=== PATIENT | female | born 1940 | race Caucasian/White ===

== ENCOUNTER 2016-06-11 23:11 | Emergency (ER) | payer MEDICARE ==
[2014-07-09 15:36] VITALS: BMI 44.4
[~2016-06-11 23:11] MED LIST: ASPIRIN325 MG PO; CINNAMON500 MG; CINNAMON500 MG PO; GARLIC1 CAP; GLUCOVANCE 5/501 TAB PO; LASIX40 MG PO; LISINOPRIL5 MG PO; VITAMIN B COMPL1 TA1 PO; probiotic
[2016-06-12 00:08] LABS: BASOPHILS 0 % (0.0-2.0); EOSINOPHILS 0.4 % (0-7); HEMATOCRIT 41.7 % (36.0-48.0); HEMOGLOBIN 13.1 g/dL (12-16); LYMPHOCYTES 3.7 % (15-50); MCH 28.5 pg (26.0-34.0); MCHC 31.4 g/dL (31.0-37.0); MCV 90.7 fL (80.0-100.0); MONOCYTES 4.9 % (2-11); PLATELET COUNT 171 10x3/uL (130-400); RDW 16.2 % (11.5-14.5); WBC 7.8 10x3/uL (4.8-10.8)
[2016-06-12 00:21] LABS: ANION GAP 13.8 mmol/L (8-16); CALCIUM 8.5 mg/dL (8.5-10.1); CREATININE - SERUM 1.1 mg/dL (0.6-1.3); POTASSIUM - SERUM 4.8 mmol/L (3.5-5.1)
== END 2016-06-12 01:45 | disposition home or self-care (01) ==
LOC: D.ER 23:11
PROVIDERS: Nurse Practitioner Acute Care
DX: K52.9 Noninfective gastroenteritis and colitis, unspecified (principal); E11.9 Type 2 diabetes mellitus without complications; I10 Essential (primary) hypertension; Z95.0 Presence of cardiac pacemaker

== ENCOUNTER 2016-08-30 10:46 | Outpatient (CLI) | payer MEDICARE ==
[~2016-08-30] VITALS: Ht 152.4 cm; Wt 93.2 kg
--- NOTE | ~2016-08-30 | HEMODYNAMI ---
PATIENT:NISHANT DANIEL MEDICAL RECORD: [id number] : 36 LOCATION:[facility] ADMISSION DATE: 08/30/16 Generatedon:08/30/201614:38 Patient name: NISHANT DANIEL Patient #: [id number] SSN: : 1940 Date of study: 08/30/2016 Page: Of Hemodynamic Procedure Report Patient Data Patient Demographics Procedure consent was obtained First Name: NISHANT Gender: Female Last Name: FREDY : 1940 [facility] Initial: A Age: 76 year(s) Patient #: [id number] Race: Unknown Additional ID: [id number] Contact details Address: [address] [place] [address] State: [place] City: [facility] Zip code: [address] Past Medical History Allergies Allergen Reaction Date Comments Reported Other allergy 08/30/2016 Statins Admission Admission Data Admission Date: 08/30/2016 Admission Time: 10:46 Admit Source: Other Lab Results Lab Result Date: 08/30/2016 Lab Result Time: 11:59 Biochemistry Name Units Result Min Max BUN mg/dl 31 --(----)-* 7 18 Creatinine mg/dl 1 --(--*-)-- 0.6 1.3 CBC Name Units Result Min Max Hematocrit % 36.2 *-(----)-- 42 54 Hemoglobin g/dl 11.4 *-(----)-- 13.5 17.5 Procedure Procedure Types Cath Procedure Diagnostic Procedure PPM/ICD Permanent Pacer Lead Replace.. Miscellaneous Procedures Moderate Sedation up to 45 minutes Procedure Description Procedure Date Procedure Date: 08/30/2016 Procedure Start Time: 13:56 Procedure End Time: 14:36 Procedure Staff Name Function Kelechi Louis MD Performing Physician Scar Zuluaga MD Assisting physician Yasmine Souza RT Scrub Thompson Britton RT Monitor Jaylan De Leon RN Nurse Procedure Data Cath Procedure Fluoroscopy Diagnostic fluoroscopy Total fluoroscopy Time: 3.2 time: 3.2 min min Diagnostic fluoroscopy Total fluoroscopy dose: 86 dose: 86 mGy mGy Contrast Material Contrast Material Type Amount (ml) Isovue 300 0 Estimated blood loss: 5 ml Procedure Complications No complications Procedure Medications Medication Administration Route Dosage Oxygen NC 2 l/min Ancef (1Gm/50ml NS) I.V.P.B 1 g Ancef Irrigation Topical 1 g (1gm/500ml NS) 0.9% NaCl I.V. 100 ml/hr Fentanyl I.V. 50 mcg Versed I.V. 1 mg Fentanyl I.V. 50 mcg Versed I.V. 1 mg Hemodynamics Rest HGB: 11.4 (g/dl) Heart Rate: 68 (bpm) Snapshots Pre Cath Intra NCS Post Cath Vital Signs Time Heart Resp SPO2 etCO2 EZ5icdc NIBP (mmHg) Rhythm Pain Sedatio n Rate (ipm) (%) (mmHg) (mmHg) Status Level (bpm) 13:08:45 69 17 100 0 0 176/84(116) NSR 0 (11) 10(A) , No pain 13:13:09 92 16 100 0 0 162/105(132) NSR 0 (11) 10(A) , No pain 13:17:27 98 17 100 0 0 174/104(129) NSR 0 (11) 10(A) , No pain 13:22:59 101 17 100 0 0 161/97(143) NSR 0 (11) 10(A) , No pain 13:27:19 76 17 100 0 0 176/91(115) NSR 0 (11) 10(A) , No pain 13:31:45 62 17 100 0 0 158/84(109) NSR 0 (11) 10(A) , No pain 13:36:06 50 18 96 0 0 157/80(101) NSR 0 (11) 10(A) , No pain 13:40:26 60 18 98 0 0 162/80(105) NSR 0 (11) 10(A) , No pain 13:44:48 60 16 96 0 0 149/79(93) NSR 0 (11) 10(A) , No pain 13:49:06 60 17 95 0 0 147/78(94) NSR 0 (11) 10(A) , No pain 13:53:24 60 18 96 0 0 157/77(110) NSR 0 (11) 10(A) , No pain 13:57:40 99 17 98 0 0 163/93(132) NSR 0 (11) 9(A) , No pain 14:01:58 116 17 98 0 0 162/110(140) NSR 0 (11) 9(A) , No pain 14:06:20 46 18 94 0 0 162/83(95) NSR 0 (11) 9(A) , No pain 14:10:42 52 18 97 0 0 119/78(103) NSR 0 (11) 9(A) , No pain 14:14:48 69 19 100 0 0 130/82(106) NSR 0 (11) 9(A) , No pain 14:19:51 115 17 100 0 0 151/101(133) NSR 0 (11) 9(A) , No pain 14:24:03 93 17 100 0 0 168/95(129) NSR 0 (11) 9(A) , No pain 14:28:24 77 18 100 0 0 161/96(118) NSR 0 (11) 9(A) , No pain 14:32:42 43 18 100 0 0 168/76(106) NSR 0 (11) 9(A) , No pain Medications Time Medication Route Dose Verified Delivered Reason Notes Effective ness by by 13:11:49 Oxygen NC 2 Jaylan Jaylan Per l/min Moises De Leon RN physician RN 13:12:05 Ancef I.V.P.B 1 g Jaylan Jaylan Per (1Gm/50ml Moises De Leon RN physician NS) RN 13:12:20 Ancef Topical 1 g Jaylan Jaylan used for Irrigation Moises De Leon moderate needs teacher (1gm/500ml RN NS) 13:12:33 0.9% NaCl I.V. 100 Jaylan Jaylan Per ml/hr Moises De Leon RN physician RN 13:56:13 Fentanyl I.V. 50 Jaylan Jaylan for [facility] Moises De Leon RN sedation RN 13:56:19 Versed I.V. 1 mg Jaylan Jaylan for Moises De Leon RN sedation RN 14:00:21 Fentanyl I.V. 50 Jaylan Jaylan for [facility] Moises De Leon RN sedation RN 14:00:27 Versed I.V. 1 mg Jaylan Jaylan for Moises De Leon RN sedation environmental services coordinator Log Time Note 12:41:00 Jaylan De Leon RN sent for patient. Start room use. 12:51:20 Informed consent obtained and on chart 12:51:25 Admit Source: Other 12:52:10 Time tracking: Regular hours 12:52:13 Plan of Care:Hemodynamics will remain stable., Cardiac rhythm will remain stable., Comfort level will be maintained., Respiratory function will remain adequate., Patient/ family verbilizes understanding of procedure., Procedure tolerated without complication., Recovers from procedure without complications.. 12:52:37 H&P Date Dictated: 08/26/2016 Within 30 days and on chart., H&P Addendum completed by physician on day of procedure. (MUST COMPLETE FOR ALL OUTPATIENTS). 12:56:08 Patient received from Pre/Post Procedure Room to CCL 1 Alert and oriented. Tansferred to table in Supine position. 12:56:09 Warm blankets applied, and charity hugger turned on for patient comfort. 12:56:10 Correct patient and procedure confirmed by team. 12:56:11 ECG and BP/O2 sat monitors applied to patient. 12:56:40 Pre-procedure instructions explained to patient. 12:56:40 Pre-op teaching completed and patient verbalized understanding. 12:56:41 Family in waiting room. 12:56:43 Patient NPO since Midnight. 13:07:27 Vital chart was started 13:07:29 Full Disclosure recording started 13:07:34 Rhythm: paced 13:11:49 Oxygen 2 l/min NC was administered by Jaylan De Leon RN; Per physician; 13:12:05 Ancef (1Gm/50ml NS) 1 g I.V.P.B was administered by Jaylan De Leon RN; Per physician; 13:12:20 Ancef Irrigation (1gm/500ml NS) 1 g Topical was administered by Jaylan De Leon RN; used for procedure; 13:12:33 0.9% NaCl 100 ml/hr I.V. was administered by Jaylan De Leon RN; Per physician; 13:15:20 Patient allergic to Other allergyStatins 13:15:23 Is the patient allergic to Iodine/contrast media? No. 13:15:25 Patient diabetic? Yes. 13:15:25 If diabetic: On Metformin? Yes 13:15:27 If on Metformin: Last Dose? 08/30/2016 13:15:30 Previous problem with sedation/anesthesia? No ? 13:15:31 Snore? Yes 13:15:31 Sleep apnea? Yes 13:15:32 Deviated septum? No 13:15:33 Opens mouth fully? Yes 13:15:34 Sticks out tongue? Yes 13:15:37 Airway obstruction? No ? 13:15:43 Dentures? Yes in tight 13:15:48 Patient pain scale 0/10 ?. 13:15:53 IV patent on arrival in left wrist with 0.9% NaCl at [facility]. 13:16:26 Lab Result : BUN 31 mg/dl 13:16:26 Lab Result : Hemoglobin 11.4 g/dl 13:16:26 Lab Result : Creatinine 1 mg/dl 13:16:26 Lab Result : Hematocrit 36.2 % 13:16:29 Lab results completed and on chart. 13:16:34 Left chest area was prepped with chlora-prep and draped in sterile fashion 13:16:35 Alarms reviewed by R. N. 13:16:36 Sharps counted by scrub and verified by R.N. 13:16:53 Medtronic instruments sales representative Donn Benavidez present for procedure. 13:17:08 Pre sharps counted by scrub and verified by RN: Sutures: 14 Sponges: 5 Stick needles: 1 Skin needles: 2 Blade: 1 Cautery: 1 13:17:11 Grounding pad site Left thigh. 13:17:13 Grounding pad site free from injury. 13:17:46 Tape was used to pull patient's left breast down and away from incision site. 13:28:50 Baseline sample Acquired. 13:29:24 Is patient on blood thinner?No 13:37:41 Physician paged 13:51:09 Physician arrived 13:51:10 --------ALL STOP TIME OUT------ 13:51:10 Final Timeout: patient, procedure, and site verified with staff and physician. All members of the team are in agreement. 13:51:14 Left chest site verified by team. 13:51:17 Physical assessment completed. ASA score P 2 - A patient with mild systemic disease as per Kelechi Louis MD. 13:51:22 Sedation plan: IV Moderate Sedation Versed, Fentanyl 13:56:13 Fentanyl 50 mcg I.V. was administered by Jaylan De Leon RN; for sedation; 13:56:19 Versed 1 mg I.V. was administered by Jaylan De Leon RN; for sedation; 13:56:32 Use device set Pacemaker Set 13:56:35 2.0 Ticron Multipack opened to sterile field. 13:56:36 3.0 Vicryl Multipack [id number] opened to sterile field. 13:56:38 5.0 Monocryl PS2 [id number] opened to sterile field. 13:56:39 Mepilex Dressing opened to sterile field. 13:56:43 Procedure started. 13:56:50 Lidocaine 1% w/epi and Bupivacaine 0.5% to left subclavicular area by Scar Zuluaga MD. 13:58:58 Incision made to left subclavicular area. 13:58:59 Generator pocket made/opened. 14:00:21 Fentanyl 50 mcg I.V. was administered by Jaylan De Leon RN; for sedation; 14:00:27 Versed 1 mg I.V. was administered by Jaylan De Leon RN; for sedation; 14:03:46 Left subclavian vein accessed with 7Fr Safe Sheath. 14:04:43 Medtronic 4074-52 PPM Lead opened to sterile field. 14:04:47 Old ventricular lead capped and left in place. 14:05:19 Ventricular lead inserted and advanced. 14:09:36 Ventricular lead positioned. 14:09:40 Ventricular lead tested. 14:15:42 Peel-a-way sheath was split and removed. 14:16:58 Ventricular lead attachment was completed with 2-0 silk. 14:19:12 Parameters--Ventricular P/R Wave: 9.5mV. Current: 0.13mA; Threshold: 0.3V; Impedence: 901OHMS. 14:20:56 Device pocket was irrigated with Ancef. 14:22:07 Subcutaneous closure was completed with 3-0 vicryl plus. 14:23:59 Skin closure was completed with 5-0 monocryl. 14:28:58 Lt Chest incision was dressed with Mepilex dressing. 14:29:29 Procedure ended.(Physican Out) 14:29:37 Fluoroscopy time 03.20 minutes. 14:29:42 Fluoroscopy dose: 86 mGy 14::42 Flurop Dose total: 86 14:29:44 Contrast amount:Isovue 300 0ml. 14:29:45 Sharps counted by scrub and verified by R.N. 14:29:59 Post sharps counted by scrub and verified by RN: Sutures: 14 Sponges: 5 Stick needles: 1 Skin needles: 2 Blade: 1 Cautery: 1 14:30:20 Insertion/operative site no bleeding no hematoma. 14:30:27 Post-op/insertion site Left Chest area dressed using a Mepilex dressing. 14:30:34 Post Chest area:stable, soft, clean and dry 14:30:38 Post-procedure physical assessment completed. ASA score P 2 - A patient with mild systemic disease as per Kelechi Louis MD. 14:30:41 Post procedure rhythm: paced 14::44 Estimated blood loss: 5 ml 14:30:45 Post procedure instruction explained to patient.Patient verbalizes understanding. 14:30:46 Patient needs reinforcement of post procedure teaching. 14:31:47 Immobilizer Extra Large opened to sterile field. 14:34:38 Procedure type changed to Cath procedure, Diagnostic procedure, PPM/ICD, Permanent Pacer Lead Replace.., Miscellaneous Procedures, Moderate Sedation up to 45 minutes 14:35:44 Procedure and supply charges have been captured, reviewed, submitted and are correct. 14:35:49 Procedure Complication : No complications 14:35:54 Vital chart was stopped 14:35:55 See physician's report for complete and final results. 14:35:57 Report given to PCU. 14:36:00 Patient transfered to PCU with Stretcher. 14:36:03 Procedure ended. 14:36:03 Full Disclosure recording stopped 14:36:26 End room use (Document Last) Device Usage Item Name Manufacture Quantity Catalog Hospital Part Current Minimal Lot# / Number Charge Number Stock Stock Serial# Code 2.0 Ticron Ethicon 1 [id number] 038595 24059 478706 5 Multipack 3.0 Vicryl Ethicon 1 [id number] 026163 405853 152297 5 Multipack [id number] 5.0 Ethicon 1 Y495G 594540 601183 960221 5 Monocryl PS2 Y495G Mepilex Cardinal 1 [id number] 657259 939040 968824 5 Dressing Health Medtronic Medtronic 1 4074-52 762077 237274 5 SN 4074-52 PPM [id number] Lead EXP: 2018-03-22 Immobilizer [place] [address] [id number] 972639 612112 706114 5 Extra Large Health Signature Audit [place] Stage Time Signature Unsigned Intra-Procedure 08/30/2016 Thompson Britton 2:38:46 PM RT(R) Signatures Monitor : Thompson Britton RT Signature : Date : Time : [address] [place] [address]
[2016-08-30] MEDS ORDERED: GLUCOPHAGE1000 MG PO (12:03)
[2016-08-30] MEDS ORDERED: BETAPACE 80 MG80 MG PO (12:04)
[2016-08-30 12:05] VITALS: BP 125/36; BMI 40.1
[2016-08-30 12:08] LABS: BASOPHILS 0.1 % (0-2); EOSINOPHILS 1.9 % (0-7); HEMATOCRIT 36.2 % (36.0-48.0); HEMOGLOBIN 11.4 g/dL (12-16); IMMATURE GRANULOCYTES 0.3 % (0-5); LYMPHOCYTES 35.3 % (15-50); MCH 28.6 pg (26.0-34.0); MCHC 31.5 g/dL (31.0-37.0); MEAN PLATELET VOLUME 9.6 fL (7.4-10.4); MONOCYTES 8.4 % (2-11); PLATELET COUNT 194 10x3/uL (130-400); RBC 3.98 10x6/uL (4.00-5.40); RDW 16.9 % (11.5-14.5); WBC 7.5 10x3/uL (4.8-10.8)
[2016-08-30 12:21] LABS: CALCIUM 8.9 mg/dL (8.5-10.1); CARBON DIOXIDE 25.3 mmol/L (21.0-32.0); POTASSIUM - SERUM 5.3 mmol/L (3.5-5.1)
[2016-08-30 13:01] LABS: APTT 31.1 SECONDS (22.8-39.4); INR 0.99 (0.85-1.17); PROTIME 12.9 SECONDS (11.6-15.0)
--- NOTE | 2016-08-30 15:13 | NUR ---
RECIEVED FROM [facility].PT HAD A VENTRICAL LEAD REVISION. V/S STABLE. DRSG TO LEFT CHEST. DRSG DRY AND INTACT. ARM SLING ON. DENIES ANY NEEDS. CALL LIGHT IN REACH WITH SR UP. FAMILY AT BEDSIDE
[2016-08-30 16:05] VITALS: BP 151/103
--- NOTE | 2016-08-30 17:33 | NUR ---
PT LAYING QUIETLY WITH HOB UP. TELEMERTY SHOWS PACED RHYTHM. PACER SITE WITH DRSG DRY AND INTACT. CALL LIGHT IN REACH WITH SR UP. FAMILY AT BEDSIDE
--- NOTE | 2016-08-30 18:19 | NUR ---
RESTING QUIETLY DENIES ANY NEEDS AT THIS TIME
--- NOTE | 2016-08-30 19:00 | NUR ---
INITIAL ROUNDS MADE. PT SITTING UP IN BED WATCHING TV. NO NEEDS OR C/O VOICED AT THIS TIME. LEFT ARM IN SLING, LEFT CHEST WALL DRSG CDI. CALL LIGHT IN REACH. WILL CONT TO MONITOR.
[2016-08-30 21:21] VITALS: BP 140/53
[2016-08-30 21:58] VITALS: Ht 152.4 cm; Wt 93.2 kg
[2016-08-31 01:26] VITALS: BP 126/53
--- NOTE | 2016-08-31 03:59 | NUR ---
FOLDER MACHINE AT BEDSIDE FOR VS. NEEDS ADDRESSED AT THIS TIME. CALL LIGHT IN REACH. WILL CONT TO MONITOR.
[2016-08-31 04:59] VITALS: BP 134/48
[2016-08-31 08:00] VITALS: BP 144/63
--- NOTE | 2016-08-31 08:17 | OP ---
PATIENT NAME: NISHANT DANIEL MEDICAL RECORD: [id number] :36 LOCATION:D.M2 D.2119 ADMISSION DATE: SURGEON: LOI CASAS MD DATE OF OPERATION: 08/30/2016 PROCEDURE: Lead portion of permanent pacemaker placement, V lead only. INDICATION: Malfunctioning previous V lead. DESCRIPTION OF PROCEDURE: After left subclavian was cannulated via modified Seldinger technique via Dr. Zuluaga, we placed RV lead into the RV apex without difficulty. After adequate R waves and thresholds were obtained, the previous lead was capped appropriately and the new ventricular lead was attached to the old generator. IMPRESSION: Successful lead revision. ESTIMATED BLOOD LOSS: Minimal. COMPLICATIONS: None. DISPOSITION: To the floor, stable. TRANSINT:[id number] Voice Confirmation ID: [id number] DOCUMENT ID: [id number] LOI CASAS MD at 0817 CC: [id number] DICTATION DATE: 08/30/16 1420 PREPLEATER: 08/30/16 2206 [facility] [address] [place] [address]
--- NOTE | 2016-08-31 10:36 | NUR ---
IV AND TELEMETY DCD. DC PLANS GIVEN. UNDERSTANDING VOICED. ESCORTED TO CAR BY W/C.
--- NOTE | 2016-09-02 12:59 | OP ---
PATIENT NAME: NISHANT DANIEL MEDICAL RECORD: [id number] :36 LOCATION:D.CAT ADMISSION DATE: SURGEON: PRACHI SPANN MD DATE OF OPERATION: 08/30/2016 PREOPERATIVE DIAGNOSES: 1. Ventricular lead failure. 2. Atrial fibrillation. 3. Diabetes mellitus. 4. Coronary artery disease. 5. Hypertension. POSTOPERATIVE DIAGNOSES: 1. Ventricular lead failure. 2. Atrial fibrillation. 3. Diabetes mellitus. 4. Coronary artery disease. 5. Hypertension. PROCEDURE: Left subclavian vein and ventricular lead placement. SURGEON: Prachi Spann MD COSURGEON: Dr. Kelechi Louis. REPORT OF OPERATION: The patient's left chest was prepped and draped in sterile fashion. A 20 mL of 1% lidocaine with epinephrine was infused into the surrounding tissues. A transverse incision was made overlying the indwelling pacemaker. We dissected down to the pacemaker and eviscerated this through the wound. A new needle stick was performed in the left subclavian vein and a guidewire was advanced with ease. Over this wire, a dilator trocar device was placed, the dilator and wire were removed and the new ventricular lead was inserted. Dr. Louis then performed placement of the ventricular lead in the patient's right ventricle. Once we noted that this was in good position, the new ventricular lead was affixed to the indwelling pacemaker. The old ventricular lead was then capped off. These were both tied down with 0 Ti-Cron. The pacemaker was placed back into the subcutaneous pouch and sutured down with an 0 Ti-Cron. We irrigated out the wound with antibiotic solution. The subcutaneous tissues were then reapproximated with interrupted 3-0 Vicryls and the skin was closed with running subcutaneous 5-0 Monocryl. COMPLICATIONS: None. CONDITION: Stable. ANESTHESIA: Local MAC. BLOOD LOSS: Minimal. TRANSINT:[id number] Voice Confirmation ID: [id number] DOCUMENT ID: [id number] OPERATIVE REPORT [id number] NISHANT DANIEL CHRISTIAN MD at 1259 CC: [id number] DICTATION DATE: 08/30/16 1432 COIN TELLER: 08/30/16 5073 DEP CLI 08/31/16 [place] [address]
== END 2016-08-31 10:37 | disposition home or self-care (01) ==
LOC: D.CATH 10:46 → D.M2 14:46 → D.CATH 08-31 10:37
PROVIDERS: Internal Medicine Cardiovascular Disease; Internal Medicine Interventional Cardiology
DX: T82.190A Other mechanical complication of cardiac electrode, initial encounter (principal); I48.91 Unspecified atrial fibrillation; E11.9 Type 2 diabetes mellitus without complications; I25.10 Atherosclerotic heart disease of native coronary artery without angina pectoris; I10 Essential (primary) hypertension

== ENCOUNTER → 2019-01-18 10:22 | Outpatient (CLI) | payer MEDICARE ==
[2016-08-30 21:58] VITALS: BMI 40.1
[~2019-01-18 10:22] MED LIST changes: +BETAPACE 80 MG80 MG PO; +GLUCOPHAGE1000 MG PO
== END | disposition home or self-care (01) ==
LOC: D.HCCECHO 10:22
PROVIDERS: ATTEND Internal Medicine Cardiovascular Disease
DX: I34.0 Nonrheumatic mitral (valve) insufficiency (principal)

== ENCOUNTER → 2019-01-28 11:57 | Outpatient (CLI) | payer MEDICARE ==
[2016-08-30 21:58] VITALS: BMI 40.1
== END | disposition home or self-care (01) ==
LOC: D.HCCARDIO 11:57
PROVIDERS: ATTEND Internal Medicine Cardiovascular Disease
DX: I25.10 Atherosclerotic heart disease of native coronary artery without angina pectoris (principal)

== ENCOUNTER → 2019-02-26 16:35 | Outpatient (CLI) | payer MEDICARE ==
[2016-08-30 21:58] VITALS: BMI 40.1
[2019-02-26 17:07] LABS: ANION GAP 10.7 mmol/L (8-16); CARBON DIOXIDE 33.7 mmol/L (21.0-32.0); CREATININE - SERUM 1.3 mg/dL (0.6-1.3); POTASSIUM - SERUM 4.4 mmol/L (3.5-5.1)
== END | disposition home or self-care (01) ==
LOC: D.LABREF 16:35
PROVIDERS: ATTEND Internal Medicine Cardiovascular Disease
DX: I10 Essential (primary) hypertension (principal)

== ENCOUNTER → 2019-04-11 08:07 | Outpatient (CLI) | payer MEDICARE ==
[2016-08-30 21:58] VITALS: BMI 40.1
== END | disposition home or self-care (01) ==
LOC: D.HCCECHO 08:07
PROVIDERS: ATTEND Internal Medicine Cardiovascular Disease
DX: I34.0 Nonrheumatic mitral (valve) insufficiency (principal)

== ENCOUNTER 2019-06-11 20:29 | Inpatient (IN) | payer MEDICARE ==
[~2019-06-11] VITALS: Ht 152.4 cm; Wt 99.1 kg
[2019-06-11] MEDS ORDERED: MOBIC7.5 MG PO (20:45)
[2019-06-11] MEDS ORDERED: COREG 3.1253.125 MG PO (20:45)
[2019-06-11] MEDS ORDERED: [UNRECOGNIZED DRUG - OTHER] (20:45)
[2019-06-11] MEDS ORDERED: CRANBERRY PO (20:46)
[2019-06-11] MEDS ORDERED: B12 (20:46)
[2019-06-11] MEDS ORDERED: FUROSEMIDE40 MG PO (20:46)
[2019-06-11 21:30] VITALS: BP 99/65
[2019-06-11 21:37] LABS: BASOPHILS 0 % (0-2); EOSINOPHILS 0.2 % (0-7); HEMATOCRIT 30.8 % (36.0-48.0); HEMOGLOBIN 9.7 g/dL (12-16); IMMATURE GRANULOCYTES 0.1 % (0-5); LYMPHOCYTES 9.9 % (15-50); MCH 27.4 pg (26.0-34.0); MCHC 31.5 g/dL (31.0-37.0); MEAN PLATELET VOLUME 9.4 fL (7.4-10.4); MONOCYTES 11.1 % (2-11); NEUTROPHILS 78.7 % (40-80); PLATELET COUNT 185 10x3/uL (130-400); RBC 3.54 10x6/uL (4.00-5.40); RDW 17.9 % (11.5-14.5); WBC 10.9 10x3/uL (4.8-10.8)
[2019-06-11 21:51] LABS: APTT 35.4 SECONDS (22.8-39.4); INR 1.06 (0.85-1.17); PROTIME 13.8 SECONDS (11.6-15.0)
[2019-06-11 21:54] LABS: CALC OSMOLALITY 305 mosm/kg (275-300); CALCIUM 8.7 mg/dL (8.5-10.1); CARBON DIOXIDE 27.8 mmol/L (21.0-32.0); CHLORIDE - SERUM 102 mmol/L (98-107); CREATININE - SERUM 2.8 mg/dL (0.6-1.3); SODIUM 137 mmol/L (136-145); UREA NITROGEN 89 mg/dL (7-18); eGFR NON AFRICAN AMERICAN 17 mL/min (90-120)
[2019-06-11 21:55] LABS: GLUCOSE 196 mg/dL (74-106)
[2019-06-11 22:15] LABS: ALBUMIN 2.7 g/dL (3.4-5.0); ALKALINE PHOSPHATASE 80 U/L (30-120); ALT (SGPT) 13 U/L (10-68); CKMB 0.2 U/L (0.0-3.6); CREATINE KINASE 36 UL (21-215); MAGNESIUM - SERUM 2.5 mg/dL (1.8-2.4); PROTEIN - SERUM 6.1 g/dL (6.4-8.2); TROPONIN-I 0.052 ng/mL (0.000-0.060)
[2019-06-12] MEDS ORDERED: ACETAMINOPHEN500 M1 PO ×2 (00:32→00:33)
[2019-06-12] MEDS ORDERED: LOPERAMIDE HCL2 MG PO (00:34)
[2019-06-12 00:37] VITALS: BP 112/40
[2019-06-12 03:01] VITALS: BMI 42.6
[2019-06-12 06:01] VITALS: BP 94/61
--- NOTE | 2019-06-12 07:10 | NUR ---
REPORT RECEIVED FROM LAB RN AND PATIENT CARE ASSUMED. PATIENT LAYING IN BED ON BACK AWAKE, ALERT AND ORIENTED X 4. PATIENT DENIES ANY NEEDS OR PAIN. DTR BS. WILL CONTINUE WITH PLAN OF CARE. SR UP X 2 BED IN LOW POSITION AND CALL LIGHT IN REACH.
[2019-06-12 07:27] LABS: BASOPHILS 0.1 % (0-2); EOSINOPHILS 0.3 % (0-7); HEMATOCRIT 30.6 % (36.0-48.0); HEMOGLOBIN 9.7 g/dL (12-16); IMMATURE GRANULOCYTES 0.2 % (0-5); LYMPHOCYTES 10.2 % (15-50); MCH 27.2 pg (26.0-34.0); MCHC 31.7 g/dL (31.0-37.0); MEAN PLATELET VOLUME 10.6 fL (7.4-10.4); MONOCYTES 11.1 % (2-11); NEUTROPHILS 78.1 % (40-80); PLATELET COUNT 190 10x3/uL (130-400); RBC 3.56 10x6/uL (4.00-5.40); RDW 17.9 % (11.5-14.5); WBC 10.1 10x3/uL (4.8-10.8)
[2019-06-12 07:47] LABS: ALBUMIN 2.5 g/dL (3.4-5.0); ANION GAP 15.6 mmol/L (8-16); BILIRUBIN - TOTAL 1.63 mg/dL (0.2-1.3); CALCIUM 8.2 mg/dL (8.5-10.1); CREATININE - SERUM 2.8 mg/dL (0.6-1.3); MAGNESIUM - SERUM 2.5 mg/dL (1.8-2.4); PHOSPHOROUS 4.5 mg/dL (2.5-4.9); POTASSIUM - SERUM 5.6 mmol/L (3.5-5.1); PROTEIN - SERUM 5.9 g/dL (6.4-8.2); TROPONIN-I 0.037 ng/mL (0.000-0.060)
[2019-06-12 10:33] LABS: NITRITE NEGATIVE (NEGATIVE); SPECIFIC GRAVITY 1.015 (1.005-1.020)
[2019-06-12 10:34] LABS: BILIRUBIN NEGATIVE (NEGATIVE); GLUCOSE NEGATIVE (NEGATIVE); KETONE NEGATIVE (NEGATIVE); RED CELLS - URINE RARE /hpf (0-5); UROBILINOGEN NORMAL (NORMAL)
[2019-06-12 10:35] LABS: BACTERIA MODERATE /hpf (NEGATIVE); EPITHELIAL CELLS 0-5 /hpf (0-5); HYALINE CAST 0-5 /lpf (NONE SEEN)
[2019-06-12 14:11] VITALS: BMI 42.5
[2019-06-12 14:26] VITALS: Ht 152.4 cm; Wt 99.1 kg
--- NOTE | 2019-06-12 15:09 | NUR ---
Rehab Note- Acute Inpatient Rehab prescreen order recevied. The patient has a pending PT Eval, will follow to assess the patient's physical mobility. Thank you for this referral! Shana Chavez RN Clinical Liaison, [facility] Rehab
--- NOTE | 2019-06-12 16:00 | NUR ---
PATIENT COMPLAINS OF NECK PAIN AT A "6." CALLED AND SPOKE EMMANUEL CARDONA. NEW ORDER RECEIVED FOR TYLENOL 500 MG PO Q 4 HRS PRN.
--- NOTE | 2019-06-12 17:15 | NUR ---
CALLED TO PATIENTS ROOM. PATIENT IS TEARFUL AND COMPLAINS OF NECK PAIN OF AN 8-9. STATES TYLENOL DID NOT HELP AT ALL AND PAIN IS WORSE. CALLED EMMANUEL CARDONA AND INFORMED HER. SHE INSTRUCTED ME TO CALL SPEAK WITH DR FORRESTER. DR FORRESTER HAS NOT MADE ROUNDS AND PATIENT DAUGHTER ASKING ABOUT SEEING THE DR. CALLED DR. FORRESTER AND LEFT VOICE MAIL.
--- NOTE | 2019-06-12 17:35 | NUR ---
CALLED DR FORRESTER AGAIN. WHILE SPEAKING ON THE PHONE WITH HIM AND EXPLAING THE PATIENTS PAIN PROBLEM, THE PHONE SUDDENLY WENT . ATTEMPTED 4 TIMES AND LEFT VOICE MESSAGES AND DID NOT HEAR BACK.
--- NOTE | 2019-06-12 17:45 | NUR ---
CALLED AND SPOKE WITH EMMANUEL CRESPO. EXPLAINED THAT PATIENT IS IN PAIN, THIS NURSE LEFT [address] FORRESTER AND HE HAS NOT RESPONED NOR MADE ROUNDS. ZAK INFORMED THAT DR FORRESTER SHOULD BE MAKIN G ROUNDS SOON AND WILL SEE THE PATIENT THEN.
[2019-06-12 20:00] VITALS: BP 96/46
[2019-06-13 00:30] VITALS: BP 94/46
--- NOTE | 2019-06-13 03:31 | NUR ---
RESTING WITH EYES CLOSED, RESPERATIONS EVEN, NO S/S DISTRESS NOTED.
--- NOTE | 2019-06-13 03:35 | NUR ---
I have reviewed this patient and I concur with the Shift Assessment completed by the Licensed Practical Nurse today this shift.
[2019-06-13 04:00] VITALS: BP 100/45
[2019-06-13 06:32] LABS: BASOPHILS 0 % (0-2); EOSINOPHILS 0 % (0-7); HEMATOCRIT 29.3 % (36.0-48.0); HEMOGLOBIN 9.1 g/dL (12-16); IMMATURE GRANULOCYTES 0.2 % (0-5); LYMPHOCYTES 10.8 % (15-50); MCH 26.9 pg (26.0-34.0); MCHC 31.1 g/dL (31.0-37.0); MCV 86.7 fL (80.0-100.0); MEAN PLATELET VOLUME 9.4 fL (7.4-10.4); MONOCYTES 12.1 % (2-11); NEUTROPHILS 76.9 % (40-80); PLATELET COUNT 181 10x3/uL (130-400); RBC 3.38 10x6/uL (4.00-5.40); RDW 17.9 % (11.5-14.5); WBC 9.5 10x3/uL (4.8-10.8)
[2019-06-13 07:00] LABS: ANION GAP 13.5 mmol/L (8-16); CALCIUM 8.4 mg/dL (8.5-10.1); CARBON DIOXIDE 26.8 mmol/L (21.0-32.0); CREATININE - SERUM 3.2 mg/dL (0.6-1.3); MAGNESIUM - SERUM 2.3 mg/dL (1.8-2.4); POTASSIUM - SERUM 5.3 mmol/L (3.5-5.1)
[2019-06-13 09:35] VITALS: BP 94/55
[2019-06-13 13:42] VITALS: BP 101/63
--- NOTE | 2019-06-13 13:56 | NUR ---
Nutrition Follow-up: Pt reports waking up hungry this AM and ate 100% of breakfast. Diet: Diabetic Wt: 218# (06/12) Last BM: 06/12 Labs noted: K+ 5.3, Ca 8.4, PO4 5.0 Meds noted: Humulin, NS @ 75 -May consider renal diabetic diet; noted K+ & PO4 elevated. -Monitor wt. -Provided education/written information on diabetic diet. -RD following.
--- NOTE | 2019-06-13 16:19 | NUR ---
OT NOTE: EXTENSIVE ATTEMPT TO PERFORM EVAL IN PM, HOWEVER, PT REFUSED. ENCOURAGED WITH ALL TASKS BUT SHE REFUSED. DTR IN ROOM AND STATES THAT SHE HAS TRIED TO GET HER TO DO THINGS ALSO, BUT HAS REFUSED HER ALSO. WILL ATTEMPT IN AM, DTR STATES THAT SHE DOES BETTER IN AM. GUADALUPE LEE, OTR/L
--- NOTE | 2019-06-13 19:18 | NUR ---
[employer] AT BED SIDE, HIBICLENSE GIVEN.
--- NOTE | 2019-06-13 19:28 | NUR ---
3RD PAGE OUT TO SURGERY, NO RETURN CALL FROM PREVIOUS PAGES.
--- NOTE | 2019-06-13 19:33 | NUR ---
SPOKE WITH DR WATKINS, INFORMED HIM OF STAT SURGICAL CONSULT. CODE SEPSIS CALLED.
[2019-06-13 19:56] LABS: BASOPHILS 0.1 % (0-2); EOSINOPHILS 0.1 % (0-7); HEMATOCRIT 31.2 % (36.0-48.0); HEMOGLOBIN 9.6 g/dL (12-16); IMMATURE GRANULOCYTES 0.3 % (0-5); LYMPHOCYTES 16.8 % (15-50); MCHC 30.8 g/dL (31.0-37.0); MCV 87.9 fL (80.0-100.0); MEAN PLATELET VOLUME 9.9 fL (7.4-10.4); MONOCYTES 13.4 % (2-11); NEUTROPHILS 69.3 % (40-80); PLATELET COUNT 188 10x3/uL (130-400); RBC 3.55 10x6/uL (4.00-5.40); RDW 18.2 % (11.5-14.5)
--- NOTE | 2019-06-13 20:00 | NUR ---
NG TUBE PLACED TO RIGHT NARE, LIS, GREEN/BROWN LIQUID NOTED IN CANISTER.
[2019-06-13 20:04] LABS: ANION GAP 17.4 mmol/L (8-16); CALCIUM 8.2 mg/dL (8.5-10.1); CARBON DIOXIDE 22.6 mmol/L (21.0-32.0); CREATININE - SERUM 3.7 mg/dL (0.6-1.3)
[2019-06-13 20:07] LABS: APTT 27.5 SECONDS (22.8-39.4); INR 1.19 (0.85-1.17)
[2019-06-13 20:10] LABS: ALBUMIN 2.1 g/dL (3.4-5.0); BILIRUBIN - TOTAL 1.72 mg/dL (0.2-1.3); MAGNESIUM - SERUM 2.3 mg/dL (1.8-2.4); PROTEIN - SERUM 5.7 g/dL (6.4-8.2)
--- NOTE | 2019-06-13 20:10 | NUR ---
18 FR LOUIS CATH PLACED USING STERILE TECHNIQUE. IMMEDIATE URINE RETURN NOTED IN TUBING. PT TOLERATED WELL.
[2019-06-13 20:11] LABS: WBC 6.7 10x3/uL (4.8-10.8)
--- NOTE | 2019-06-13 20:51 | NUR ---
DR WATKINS AT BED SIDE.
--- NOTE | 2019-06-13 21:09 | NUR ---
NOTIFIED DIRECTORY CLERK Eloisa GAUTHIER THAT DR WATKINS WANTS PT IN ICU.
--- NOTE | 2019-06-14 09:34 | MORECARE ---
CASE MANAGEMENT DISCHARGE SUMMARY PATIENT: NISHANT DANIEL UNIT: [id number] ADM DATE: 06/11/19 AGE: 79 : 38 SEX: F ROOM/BED: D.215 AUTHOR: DANIEL GALVEZ PHYSICIAN: REFERRING PHYSICIAN: ALEXUS FORRESTER MD DATE OF SERVICE: 06/14/19 Discharge Plan Patient Name: [facility]ISHANT DANIEL [facility] [facility] 1940 Planned Disposition: Hosp[facility] Medical Facility Anticipated Discharge Date: 06/13/19 Discharge Date: 06/14/2019 Expected LOS: 2 Initial Reviewer: [email or web address] Initial Review Date: 06/14/2019 Generated: 06/14/19 10:33 am Patient Name: NISHANT DANIEL Page [phone] at 0934 All edits/amendments must be made on the electronic document DICTATION DATE: 06/14/19932 MOLD LAMINATOR: DM 06/14/19932 RPT#: [id number] DC DATE:06/14/19 STATUS: DIS IN [facility] [address] [place] [address] END OF REPORT
== END 2019-06-14 01:50 | disposition hospice, inpatient (51) | DRG 380 ==
LOC: D.ER 20:29 → D.M2 23:10
PROVIDERS: Family Medicine; Surgery; ADMIT Internal Medicine Nephrology; ATTEND Internal Medicine Nephrology
DX: K25.5 Chronic or unspecified gastric ulcer with perforation (principal); J96.01 Acute respiratory failure with hypoxia; K65.9 Peritonitis, unspecified; N17.9 Acute kidney failure, unspecified; N39.0 Urinary tract infection, site not specified; I13.0 Hypertensive heart and chronic kidney disease with heart failure and stage 1 through stage 4 chronic kidney disease, or unspecified chronic kidney disease; E44.0 Moderate protein-calorie malnutrition; Z68.41 Body mass index [BMI] 40.0-44.9, adult; K46.9 Unspecified abdominal hernia without obstruction or gangrene; E87.5 Hyperkalemia; E11.22 Type 2 diabetes mellitus with diabetic chronic kidney disease; N18.9 Chronic kidney disease, unspecified; I50.9 Heart failure, unspecified; D63.1 Anemia in chronic kidney disease; I25.5 Ischemic cardiomyopathy; I08.1 Rheumatic disorders of both mitral and tricuspid valves; I25.10 Atherosclerotic heart disease of native coronary artery without angina pectoris; I48.91 Unspecified atrial fibrillation; E66.01 Morbid (severe) obesity due to excess calories

== ENCOUNTER 2019-06-14 02:00 | Inpatient (IN) | payer OTHER ==
[~2019-06-14] VITALS: Ht 152.4 cm; Wt 99.1 kg
[2019-06-14] VITALS: BP 103/48
[~2019-06-14 02:00] MED LIST changes: +ACETAMINOPHEN500 M1 PO; +B12; +COREG 3.1253.125 MG PO; +CRANBERRY PO; +FUROSEMIDE40 MG PO; +LOPERAMIDE HCL2 MG PO; +MOBIC7.5 MG PO; +[UNRECOGNIZED DRUG - OTHER]
[2019-06-14 03:18] VITALS: Ht 152.4 cm; Wt 99.1 kg
[2019-06-14 04:00] VITALS: BP 132/74
--- NOTE | 2019-06-14 07:10 | NUR ---
REPORT RECEIVED FROM FACTORY MACHINE COMPUTER OPERATOR AND PATIENT CARE ASSUMED. PATIENT LYING IN BED ON BACK WITH HOB ELEVATED [address] TUBE IN PL[address] ON INTERMITTENT SUCTION. LOUIS CATHETER DRAINING DARK YELLOW URINE. PATIENT BP 87/46 RESP 6 AND AGONAL. PATIENT DTR AT BS. SPENT SEVERAL MINUTES WITH DTR ANSWERING QUESTIONS AND GIVING COMFORT AND SUPPORT. DTR HUGGED THIS NURSE AND THANKED HER FOR CARE. WILL CONTINUE TO MONITOR. SR UP X 2 BED IN LOW POSITION AND CALL LIGHT IN REACH.
--- NOTE | 2019-06-14 08:00 | NUR ---
COMPLETED PATIENT ASSESSMENT. DTR AT BS. DTR IS CALM AND UNDERSTANDS THIS SITUATION AND COMFORTABLE. GOT DTR COFFEE AND GAVE HER A DONUT. DTR STATES THAT SHE IS SO THANKFUL FOR CARE. CALLED [facility] AND INFORMED OF PATIENTS CONDITION INCLUDING AGONAL BREATHING. THIS NURSE INFORMED BY HOSPICE THAT COMMUNICATION CENTER COORDINATOR NURSE WILL BE CONTACTING .
--- NOTE | 2019-06-14 08:45 | NUR ---
RECEIVED PHONE CALL FROM SHE CRUZ FROM HOSPICE. SHE STATED THAT SHE WILL BE AT FACILITY IN ONE TO TWO HOURS. INFORMED DTR.
[2019-06-14 09:10] VITALS: BP 86/42
--- NOTE | 2019-06-14 09:34 | MORECARE ---
CASE MANAGEMENT DISCHARGE SUMMARY PATIENT: NISHANT DANIEL UNIT: [id number] ADM DATE: 06/14/19 AGE: 79 : 38 SEX: F ROOM/BED: D.2696 AUTHOR: DANIEL GALVEZ PHYSICIAN: REFERRING PHYSICIAN: MADINA PRECIADO MD DATE OF SERVICE: 06/14/19 Discharge Plan Patient Name: NISHANT DANIEL Facility: [facility]:[place] : 1940 Planned Disposition: Hospice Medical Facility Anticipated Discharge Date: Discharge Date: Expected LOS: Initial Reviewer: [email or web address] Initial Review Date: 06/14/2019 Generated: 06/14/19 10:34 am Patient Name: NISHANT DANIEL Page [phone] at 0934 All edits/amendments must be made on the electronic document DICTATION DATE: 06/14/19933 HAND BUFFER: ALEXA 06/14/19933 RPT#: [id number] DC DATE: STATUS: ADM IN [facility] [address] [place] [address] END OF REPORT
--- NOTE | 2019-06-14 09:42 | MORECARE ---
CASE MANAGEMENT DISCHARGE SUMMARY PATIENT: NISHANT DANIEL UNIT: [id number] ADM DATE: 06/14/19 AGE: 79 : 38 SEX: F ROOM/BED: D.4796 AUTHOR: DANIEL GALVEZ PHYSICIAN: REFERRING PHYSICIAN: MADINA PRECIADO MD DATE OF SERVICE: 06/14/19 Discharge Plan Patient Name: NISHANT DANIEL Facility: [facility]:[place] : 1940 Planned Disposition: Hospice Medical Facility Anticipated Discharge Date: Discharge Date: Expected LOS: Initial Reviewer: [email or web address] Initial Review Date: 06/14/2019 Generated: 06/14/19 10:41 am Comments DCP- Discharge Planning Updated by [email or web address]: Femi Espinoza on 06/14/19 8:[address] Patient Name: NISHANT DANIEL Admission Status: Elective Accout number: [id number] Admission Date: 06-14-2019 : 1940 Admission Diagnosis: Attending: MADINA PRECIADO Current LOS: 1 Anticipated DC Date: Planned Disposition: Hospice Medical Facility Primary Insurance: [facility] PLANNED EXTERNAL PROVIDER: [facility] Discharge Planning Comments: PT ADMITTED TO INPATIENT HOSPICE PER ADMIT ORDER IN HARD CHART. CM ANTICIPATES NO NEEDS OF HOSPITAL CASE MANAGEMENT PT RECEIVES ALL CASE MANAGEMENT SERVICES FROM [facility]. Iron Miner: Femi Espinoza Last DP export: 06/14/19 8:34 a Patient Name: NISHANT DANIEL Page [phone] at 0942 All edits/amendments must be made on the electronic document DICTATION DATE: 06/14/19940 ULTRASONIC HAND SOLDERER: ALEXA 06/14/19940 RPT#: [id number] DC DATE: STATUS: ADM IN [facility] [address] [place] [address] END OF REPORT
--- NOTE | 2019-06-14 09:45 | NUR ---
CALLED TO ROOM BY DTR. DTR STATES THAT PATIENT IS MOANING AND SEEMS UNCOMFORTABLE AND REQUESTS PAIN MED. MEDICATED PER MAR WITH DILAUDED 0.2 MG IV. WILL CONTINUE TO MONTIOR. SR UP X 2 BED IN LOW POSITION AND CALL LIGHT INR EACH.
--- NOTE | 2019-06-14 10:30 | NUR ---
PATIENT IS CONTINUED WITH AGGONAL BREATHING AT 6 PER MIN. PATIENT IS NO LONGER MOAING. REPOSITIONED FOR COMFORT. WILL CONTINUE TO MONITOR. SR UP X 2 BED IN LOW POSITION AND CALL LIGHT IN REACH.
--- NOTE | 2019-06-14 11:30 | NUR ---
HOSPICE NURSE SHE CRUZ IN ROOM. NURSE SPENT SEVERAL MINUTES WITH DTR AND PATIENT. NO CHANGED IN CONDITION WILL CONTINUE TO [facility]. SR UP X 2 BED IN LOW POSITION AND CALL LIGHT IN REACH.
--- NOTE | 2019-06-14 11:53 | NUR ---
OT NOTE: DC OT PT IS NOW ON HOSPICE CARE. GUADALUPE LEE, OTR/L
--- NOTE | 2019-06-14 13:30 | NUR ---
NO CHANGE IN PATIENT CONDITION. STILL WITH AGONAL BREATHING AT 6 PER MIN. PERFORMED ORAL CARE. NEW FAMILY MEMEBERS IN ROOM. SPENT SEVERAL MINUTES ASNWERING QUESTIONS, GIVING COMFORT AND PROVIDED WATER COFFEE AND TEA. FAMILY THANKED THIS NURSE FOR CARE.
--- NOTE | 2019-06-14 16:15 | NUR ---
PATIENT CONTINUES WITH AGONAL BREATHING A 9 PER MINUTES. PATIENT IS MOAINING. MEDICATED PER MAR WITH DILAUDED WITH 0.5MG IV. STAYED IN ROOM WITH PATIENT AND FAMILY. REPOSITIONED PATIENT FOR COMFORT AND PROVIDED ORAL CARE. WILL CONTINUE TO MONITOR.
--- NOTE | 2019-06-14 18:00 | NUR ---
MULTIPLE FAMILY MEMBERS IN ROOM. PATIENT CONTINUES WITH AGONAL BREATHING AT 7 PER MINUTE. GAVE PATIENT ORAL CARE AND REPOSITIONED FOR COMFORT. GAVE SOMFORT TO FAMILY . FAMILY THANKED THIS NURSE FOR WONDERFUL CARE. WILL CONTINUE TO MONITOR. SR UP X 2 BED IN LOW POSITION AND CALL LIGHT IN REACH.
--- NOTE | 2019-06-14 18:50 | NUR ---
WASTE SALVAGER INFORMED THIS NURSE THAT PATIENT IS ASYSTOLE ON MONITOR. ENTERED PATIENTS ROOM WITH CHARGE NURSE SHE DOMINGUEZ. PATIENT HAS NO HEART RATE NOR ANY RESPIRATIONS. SPENT SEVERAL MINUTES WITH PATIENT AND FAMILY. FAMILY IS CALM AND STATES THAT THEY ARE HAPPY THAT THEIR MOTHER IS NO LONGER IN PAIN. DTR AND FAMILY WANT TO LEAVE. THIS NURSE ASKED TO HAVE FAMILY REMAIN WHILE APPROPRIATE PAPERWORK IS SIGNED. PRINTED RECORD OF FORM AND DTR SIGNED. ONCE AGAIN FAMILY THANKED THIS NURSE FOR CARE. DTR TOOK ALL OF PATIENT BELONGINGS . DTR REQUESTED THAT UPPER DENTURE OF PATIENT BE LEFT IN. CONTACTED [facility]. [facility] NURSE CALLED BACK AND STATED THST SHE IS IN [place] AND WILL ARRICE AT FACILITY SOON POSSIBLE.
--- NOTE | 2019-06-14 22:26 | NUR ---
BODY RELEASED TO [facility]
--- NOTE | 2019-06-15 09:52 | MORECARE ---
CASE MANAGEMENT DISCHARGE SUMMARY PATIENT: NISHANT DANIEL UNIT: [id number] ADM DATE: 06/14/19 AGE: 79 : 38 SEX: F ROOM/BED: D.4676 AUTHOR: DANIEL GALVEZ PHYSICIAN: REFERRING PHYSICIAN: MADINA PRECIADO MD DATE OF SERVICE: 06/15/19 Discharge Plan Patient Name: NISHANT DANIEL Facility: [facility]:[place] : 1940 Planned Disposition: Hospice Medical Facility Anticipated Discharge Date: Discharge Date: 06/14/2019 Expected LOS: Initial Reviewer: [email or web address] Initial Review Date: 06/14/2019 Generated: 06/15/19 10:52 am Comments DCP- Discharge Planning Updated by [email or web address]: Femi Espinoza on 06/14/19 8:[address] Patient Name: NISHANT DANIEL Admission Status: Elective Accout number: [id number] Admission Date: 06-14-2019 : 1940 Admission Diagnosis: Attending: MADINA PRECIADO Current LOS: 1 Anticipated DC Date: Planned Disposition: Hospice Medical Facility Primary Insurance: [facility] PLANNED EXTERNAL PROVIDER: [facility] Discharge Planning Comments: PT ADMITTED TO INPATIENT HOSPICE PER ADMIT ORDER IN HARD CHART. CM ANTICIPATES NO NEEDS OF HOSPITAL CASE MANAGEMENT PT RECEIVES ALL CASE MANAGEMENT SERVICES FROM [facility]. Dress Fitter: Femi Espinoza Last DP export: 06/14/19 8:42 a Patient Name: NISHANT DANIEL Page [id number] at 0952 All edits/amendments must be made on the electronic document DICTATION DATE: 06/15/19951 CLOTH FINISHER: ALEXA 06/15/1954 RPT#: [id number] DC DATE:06/14/19 STATUS: DIS IN [facility] [address] [place] [address] END OF REPORT
== END 2019-06-14 22:27 | DRG 951 ==
LOC: D.M2 02:00
PROVIDERS: ADMIT Legal Medicine; ATTEND Legal Medicine
DX: Z51.5 Encounter for palliative care (principal)